=== PATIENT | female | born 1930 | race Two or more races ===

== ENCOUNTER 2020-03-09 13:52 | Inpatient (IN) | payer SELFPAY ==
[~2020-03-09] VITALS: Ht 165.1 cm; Wt 70.3 kg
--- NOTE | 2020-03-09 13:55 | NUR ---
ED Nurse Note: Pt was brought in by ambulance from home d/t near syncope. Per EMS report, "family provided chest compressions"; pt (-) loss of consciousness. Pt is AOx2, fluent in polish, calm and cooperative. Placed on bed and gown; hooked to case monitor. Initial BP's at 180/76. safety measures in placed. Will continue to monitor pt.
--- NOTE | 2020-03-09 14:16 | Emergency Room Report ---
History of Present Illness General Chief Complaint: Syncope Source: Patient Present Illness HPI Patient is an 89-year-old female brought in by EMS after witnessed syncopal episode. Patient had been noted to have loss of consciousness briefly. Patient had been given CPR by family member. Had subsequent return of normal mental status after CPR. Patient reportedly Maltese-speaking. Review of systems: Review systems is limited by patient's being a poor historian Allergies: Coded Allergies: No Known Allergies (Unverified , 03/09/20) COVID-19 Screening Contact w/high risk pt: No Recent Travel to affected area: No Experienced COVID-19 symptoms?: No COVID-19 Testing performed ADJUNCT PHILOSOPHY FACULTY: No Patient History Reviewed Nursing Documentation: PMH: Agreed; PSxH: Agreed Nursing Documentation-PMH Past Medical History: No History, Except For Hx Cardiac Problems: Yes Hx Hypertension: Yes Hx Diabetes: Yes Review of Systems All Other Systems: limited Physical Exam Vital Signs Date Time Temp Pulse Resp B/P (MAP) Pulse Ox O2 Delivery O2 Flow Rate FiO2 03/09/20 13:44 98.8 85 16 190/85 (120) 98 Room Air Sp02 EP Interpretation: reviewed, normal General Appearance: normal inspection, well appearing, no apparent distress, alert Head: atraumatic ENT: normal ENT inspection, hearing grossly normal, normal voice Neck: normal inspection, full range of motion, supple, no bony tend Respiratory: normal inspection, lungs clear, normal breath sounds, no respiratory distress, no retraction, no wheezing Cardiovascular #1: regular rate, rhythm, no edema Gastrointestinal: normal inspection, normal bowel sounds, non tender, soft, no guarding, no hernia Genitourinary: no CVA tenderness Musculoskeletal: normal inspection, back normal, normal range of motion Neurologic: alert, motor strength/tone normal, runway model III-XII nml as tested, responsive, speech normal, normal inspection Psychiatric: normal inspection, judgement/insight normal, mood/affect normal Medical Decision Making Diagnostic Impression: Primary Impression: Syncope ER Course Patient presented for syncope. Differential diagnosis include was not limited to subarachnoid hemorrhage, seizure, CVA, electrolyte abnormality, among others. Because of complexity of patient's case laboratory tests and imaging studies were ordered. Patient was noted to have decreased speech while in the emergency department initially. Appears to have strength in both upper extremities. CT imaging of the head as well as the chest were ordered chest CT was ordered due to patient's recent CPR and possible fractures.CT imaging read by radiology showed right renal mass CT of the head read by radiology showed atrophic changes without evidence CVA or intracranial hemorrhage. Patient was noted to have improvement in her mental status over time in emergency department. Laboratory testing was essentially unremarkable. Dr. Jose Roberto Ruby was contacted for inpatient management due to panel physician Labs Test 03/09/20 13:55 03/09/20 14:25 White Blood Count 7.0 K/UL (4.8-10.8) Red Blood Count 4.32 M/UL (4.20-5.40) Hemoglobin 11.7 G/DL (12.0-16.0) Hematocrit 34.7 % (37.0-47.0) Mean Corpuscular Volume 80 FL (80-99) Mean Corpuscular Hemoglobin 27.1 PG (27.0-31.0) Mean Corpuscular Hemoglobin Concent 33.7 G/DL (32.0-36.0) Red Cell Distribution Width 11.8 % (11.6-14.8) Platelet Count 198 K/UL (150-450) Mean Platelet Volume 5.9 FL (6.5-10.1) Neutrophils (%) (Auto) 61.0 % (45.0-75.0) Lymphocytes (%) (Auto) 26.6 % (20.0-45.0) Monocytes (%) (Auto) 8.8 % (1.0-10.0) Eosinophils (%) (Auto) 2.5 % (0.0-3.0) Basophils (%) (Auto) 1.2 % (0.0-2.0) Prothrombin Time 11.4 SEC (9.30-11.50) Prothromb Time International Ratio 1.0 (0.9-1.1) Activated Partial Thromboplast Time 28 SEC (23-33) Sodium Level 138 MMOL/L (136-145) Potassium Level 4.0 MMOL/L (3.5-5.1) Chloride Level 102 MMOL/L (98-107) Carbon Dioxide Level 27 MMOL/L (21-32) Anion Gap 9 mmol/L (5-15) Blood Urea Nitrogen 21 mg/dL (7-18) Creatinine 1.3 MG/DL (0.55-1.30) Estimat Glomerular Filtration Rate 38.6 mL/min (>60) Glucose Level 107 MG/DL (74-106) Lactic Acid Level 1.60 mmol/L (0.4-2.0) Calcium Level 9.6 MG/DL (8.5-10.1) Phosphorus Level 4.0 MG/DL (2.5-4.9) Magnesium Level 2.1 MG/DL (1.8-2.4) Total Bilirubin 0.4 MG/DL (0.2-1.0) Aspartate Amino Transf (AST/SGOT) 16 U/L (15-37) Alanine Aminotransferase (ALT/SGPT) 12 U/L (12-78) Alkaline Phosphatase 49 U/L (46-116) Total Creatine Kinase 50 U/L (26-308) Creatine Kinase MB 0.8 NG/ML (0.0-3.6) Creatine Kinase MB Relative Index 1.6 Troponin I 0.013 ng/mL (0.000-0.056) Total Protein 7.6 G/DL (6.4-8.2) Albumin 3.9 G/DL (3.4-5.0) Globulin 3.7 g/dL Albumin/Globulin Ratio 1.1 (1.0-2.7) Urine Color Pale yellow Urine Appearance Clear Urine pH 7 (4.5-8.0) Urine Specific [place] 1.005 (1.005-1.035) Urine Protein Negative (NEGATIVE) Urine Glucose (UA) Negative (NEGATIVE) Urine Ketones Negative (NEGATIVE) Urine Blood Negative (NEGATIVE) Urine Nitrite Negative (NEGATIVE) Urine Bilirubin Negative (NEGATIVE) Urine Urobilinogen Normal MG/DL (0.0-1.0) Urine Leukocyte Esterase 1+ (NEGATIVE) Urine RBC 0 /HPF (0 - 2) Urine WBC 0-2 /HPF (0 - 2) Urine Squamous Epithelial Cells Occasional /LPF Urine Bacteria Occasional /HPF (NONE) EKG Diagnostic Results Rate: normal - with a rate of [address] or T wave changes Rhythm: NSR ST Segments: no acute changes Last Vital Signs Date Time Temp Pulse Resp B/P (MAP) Pulse Ox O2 Delivery O2 Flow Rate FiO2 03/09/20 13:44 98.8 85 16 190/85 (120) 98 Room Air Status: unchanged Disposition: ADMITTED INPATIENT Condition: Stable Scripts Unable to Obtain Active Prescriptions or Reported Meds Referrals: NOT CHOSEN IPA/MD,REFERRING (PCP) Dontrell Hwang MD Mar 09, 2020 14:16
[2020-03-09 14:18] VITALS: BP 180/76
--- NOTE | 2020-03-09 14:19 | NUR ---
ED Nurse Note: x-ray tech at bedside.
[2020-03-09 14:26] LABS: ANION GAP 9 mmol/L (5-15); BLOOD UREA NITROGEN 21 mg/dL (7-18); CALCIUM 9.6 MG/DL (8.5-10.1); CARBON DIOXIDE 27 MMOL/L (21-32); CHLORIDE 102 MMOL/L (98-107); CREATININE 1.3 MG/DL (0.55-1.30); SODIUM 138 MMOL/L (136-145)
[2020-03-09 14:40] LABS: ALANINE AMINOTRANSFERASE 12 U/L (12-78); ALBUMIN 3.9 G/DL (3.4-5.0); ALBUMIN/GLOBULIN RATIO 1.1 (1.0-2.7); ALKALINE PHOSPHATASE 49 U/L (46-116); ASPARTATE AMINO TRANSFERASE 16 U/L (15-37); BILIRUBIN,TOTAL 0.4 MG/DL (0.2-1.0); CKMB 0.8 NG/ML (0.0-3.6); CREATINE KINASE 50 U/L (26-308)
[2020-03-09 14:42] LABS: BASOPHILS % (AUTO) 1.2 % (0.0-2.0); EOSINOPHILS % (AUTO) 2.5 % (0.0-3.0); HEMATOCRIT 34.7 % (37.0-47.0); HEMOGLOBIN 11.7 G/DL (12.0-16.0); LYMPHOCYTES % (AUTO) 26.6 % (20.0-45.0); MEAN CORPUSCULAR VOLUME 80 FL (80-99); MONOCYTES % (AUTO) 8.8 % (1.0-10.0); PLATELET COUNT 198 K/UL (150-450); RED BLOOD COUNT 4.32 M/UL (4.20-5.40); RED CELL DISTRIBUTION WIDTH 11.8 % (11.6-14.8)
--- NOTE | 2020-03-09 14:46 | NUR ---
ED Nurse Note: urine collected, sent to labs.
[2020-03-09 14:51] LABS: APPEARANCE,URINE CLEAR; BILIRUBIN, URINE NEGATIVE (NEGATIVE); COLOR,URINE PALE YELLOW; GLUCOSE, URINE (UA) NEGATIVE (NEGATIVE); KETONES,URINE NEGATIVE (NEGATIVE); LEUKOCYTE ESTERASE ,URINE 1+ (NEGATIVE); NITRITE,URINE NEGATIVE (NEGATIVE); PH,URINE 7 (4.5-8.0); PROTEIN,URINE NEGATIVE (NEGATIVE); UROBILINOGEN,URINE NORMAL MG/DL (0.0-1.0)
--- NOTE | 2020-03-09 14:56 | NUR ---
ED Nurse Note: daughter : emilia [phone]
--- NOTE | 2020-03-09 15:34 | Diagnostic Imaging Report ---
Indication: Shortness of breath Technique: One view of the chest Comparison: none Findings: Patient is slightly rotated to the right. There is mild prominence of the interstitial markings, suspect on the basis of senescent changes. No amita congestion, infiltrates, or effusions. The heart size is upper limits normal. Impression: Mildly prominent interstitial markings, suspect on the basis of senescent changes. No definite acute process
--- NOTE | 2020-03-09 15:48 | NUR ---
ED Nurse Note: pt taken to CT
--- NOTE | 2020-03-09 16:24 | Diagnostic Imaging Report ---
Indications: Syncopal episode, loss of consciousness Technique: Spiral acquisitions obtained through the brain. Angled axial and coronal 5 x 5 mm slices were reconstructed. Total dose length product 1040 mGycm. CTDI vol(s) 53 mGy. Dose reduction achieved using automated exposure control Comparison: None. Findings: There is age-related enlargement of the ventricles and extra axial CSF spaces. There is periventricular deep white matter low-attenuation, consistent with chronic microvascular ischemic change. Otherwise normal booth-white differentiation. No acute intracranial hemorrhage or edema. No mass effect nor midline shift. Intact calvarium. Visualized orbits are unremarkable. There is ethmoid and maxillary sinus disease noted. The mastoids are clear. Impression: Chronic and age-related changes Negative for acute intracranial bleed or mass effect Minimal sinus disease The CT scanner at [facility] is accredited by the [employer] and the scans are performed using protocols designed to limit radiation exposure to as low as reasonably achievable to attain images of sufficient resolution adequate for diagnostic evaluation.
--- NOTE | 2020-03-09 16:36 | Diagnostic Imaging Report ---
Clinical Indication: Chest pain, possible rib trauma Technique: Spiral acquisitions obtained through the chest. No IV contrast utilized, reason not stated. Multiplanar reconstructions generated. Total dose length product to 35 mGycm. CTDIvol(s) 5 mGy. Dose reduction achieved using automated exposure control Comparison: none Findings: No evidence of rib or other fracture demonstrated. No significant soft tissue contusion. There are mild degenerative changes of the thoracic spine. Chronic appearing tiny clustered nodular opacities are seen at the periphery of both lungs. These may be calcified. There are some dependent posterior atelectatic changes at both lung bases. No dense consolidation. No definite infiltrates, masses, or contusion demonstrated. The heart size is normal. The main pulmonary artery is somewhat ectatic, measuring up to 3.5 cm in diameter, in the right main pulmonary artery is frankly dilated, measuring 3 cm in diameter. The ascending thoracic aorta is mildly ectatic but not frankly aneurysmal. No mediastinal or hilar mass or adenopathy. No pericardial effusion. The esophagus is unremarkable. The included thyroid is unremarkable. No axillary or chest wall mass or adenopathy. Included upper abdominal anatomy demonstrates a soft tissue attenuation mass in the upper pole of the right kidney, incompletely visualized but measuring at least 4 cm in diameter, with some peripheral calcification. Multiple cysts are seen in both kidneys. Calcifications in both kidneys are probably mostly arterial. The liver demonstrates multiple cysts. Considerable stool is seen throughout the colon. Impression: No evidence of acute bony or significant soft tissue trauma Minimal chronic fibrotic changes of the lungs Ectatic main and dilated right pulmonary artery, suggestive of pulmonary arterial hypertension 4 cm solid appearing right renal mass, incompletely included. Neoplasm possible. Further evaluation with contrast CT recommended Evidence of constipation Incidental finding of hepatic and bilateral renal cysts. Findings discussed by phone with Dr. Hwang in the emergency room at the time of interpretation The CT scanner at [facility] is accredited by the [employer] and the scans are performed using protocols designed to limit radiation exposure to as low as reasonably achievable to attain images of sufficient resolution adequate for diagnostic evaluation.
--- NOTE | 2020-03-09 17:04 | NUR ---
ED Nurse Note: report given to KATHY Cruz for continuity of care.
--- NOTE | 2020-03-09 17:30 | NUR ---
TRANSFER TO SDU: Patient transferred to ROOM 235-1 as ordered, per Dr. Ruby. Report given too Nancy RN. Belongings sent with patient upstairs. Family and or S/O informed of transfer.
--- NOTE | 2020-03-09 17:50 | NUR ---
NURSE NOTES: Received report from KATHY Teran. Pt transferred from ED via gurney with 2 RNs. Pt awake and orientedx4 and australian speaking only. IV site in left hand 22G SL, Lefe forearm 20G SL patent and asymptomatic. Denied pain at this time. Pt able to walk with staff assist. Continent x2. groundwater monitoring technician applied. Will contact Tung Merlos for admission orders.
[2020-03-09] MEDS ORDERED: METFORMIN HCL850 M1 ORAL (18:13)
[2020-03-09] MEDS ORDERED: LOSARTAN POTASS50 MG ORAL (18:13)
[2020-03-09] MEDS ORDERED: PENTOXIFYLLINE400 MG ORAL (18:13)
[2020-03-09] MEDS ORDERED: NORVASC5 MG ORAL (18:13)
[2020-03-09] MEDS ORDERED: HYDROCHLOROTH12.5 MG ORAL (18:13)
--- NOTE | 2020-03-09 18:30 | NUR ---
NURSE NOTES: Med rec is done. Admission orders obtained.
--- NOTE | 2020-03-09 19:20 | NUR ---
HAND-OFF: Report given to KATHY Olmos. Pt remains stable.
--- NOTE | 2020-03-09 19:30 | NUR ---
NURSE NOTES: pt report received from MIN RN. pt remains stable. pt is alert and oriented times 4, able to follow commands. pt is on mechanic assistant showing NSR, no acute cardiac abnormalities noted. pt is sating at 97% O2. pt bed is low, locked, armed, call light within reach, bed rails up times 3. will follow plan of care.
[2020-03-09 20:00] VITALS: BP 132/79
[2020-03-09] MEDS: NovoLOG Insulin Flexpen SUBQ SCH (20:32)
[2020-03-09] MEDS: Losartan 50mg tab ORAL SCH (20:40)
[2020-03-10] VITALS: BP 124/82
--- NOTE | 2020-03-10 | History and Physical Report ---
DATE OF ADMISSION: 03/09/2020 SUBJECTIVE: This is an 89-year-old female who came with a syncopal episode at home. The patient also has loss of consciousness, CPR resuscitated. The patient was transferred to the medical floor. The patient had a CT scan showing a right renal mass. The patient was also altered, but now she feels much better. Her head CT is negative. PAST MEDICAL HISTORY: Significant for hypertension, degenerative arthritis, and generalized weakness. PHYSICAL EXAMINATION: GENERAL: The patient is now alert, oriented x2. VITAL SIGNS: Her blood pressure is 130/70, pulse 84, respirations 18, no fever. SKIN: Skin is good with skin turgor. HEENT: Eyes are open. NECK: Supple. CHEST: Bilateral decreased breath sounds. CARDIOVASCULAR: Regular rhythm. No gallop. No murmur. ABDOMEN: Soft. Positive bowel sounds. Nontender. EXTREMITIES: No edema. GENITOURINARY: Deferred. LABORATORY EXAMINATIONS: urine is negative. White counts are normal. ASSESSMENT: 1. Altered mental status. 2. Syncope. 3. Cardiopulmonary arrest. 4. Renal mass. PLAN: We will admit on telemetry bed. Consider neuro consult. Add IV fluids. Neuro check. PT and OT evaluation. Consider urology consult and nephro consult. Jose Roberto Ruby M.D. DR: ELENA JOB#: [id number] CC:
[2020-03-10 04:00] VITALS: BP 136/80
[2020-03-10] MEDS: NovoLOG Insulin Flexpen SUBQ SCH ×2 (05:57→11:30)
--- NOTE | 2020-03-10 07:20 | NUR ---
HAND-OFF: Report given to RAMIRO RN. Pt remains stable.
--- NOTE | 2020-03-10 07:21 | NUR ---
NURSE NOTES: Received patient in bed awake. No SOB or acute distress. IV lines intact. HOB elevated. Bed locked in lowest position. Call light within reach. Will continue plan of care.
[2020-03-10 08:00] VITALS: BP 123/70
[2020-03-10] MEDS: Losartan 50mg tab ORAL SCH (08:34)
[2020-03-10] MEDS ORDERED: hydroCHLOROthiazide 12.5mg TAB ORAL SCH (09:00)
--- NOTE | 2020-03-10 09:00 | NUR ---
NURSE NOTES: Complaining of right rib pain, Dr Ruby made aware, with orders for tylenol, noted and carried out. Carotid duplex scan ongoing at bedside.
[2020-03-10 12:00] VITALS: BP 125/67
--- NOTE | 2020-03-10 12:03 | NUR ---
CASE MANAGEMENT: REVIEW 89 YEAR OLD FEMALE BIBA FROM HOME CC: SYNCOPAL EPISODE . S/P CPR SI: SYNCOPE . T 98.8 HR 85 RR 16 BP 190/85 SAT 98% ROOM AIR H/H 11.7/34.7 BUN [address] HEAD -- NEGATIVE FOR ACUTE INTRACRANIAL BLEED OR MASS EFFECT IS: NS IVF BOLUS X1 PT EVAL NEURO CHECKS PATIENT ADMITTED TO STEP DOWN UNIT 03/07/2020 DCP: PATIENT IS FROM HOME
--- NOTE | 2020-03-10 12:13 | Diagnostic Imaging Report ---
Indication: Altered mental status, near syncope Technique: Grayscale and duplex images of the bilateral extracranial carotid and vertebral arteries Comparison: none Findings: Bilaterally, grayscale and duplex images demonstrate atherosclerotic plaquing resulting in less than 50% diameter narrowing. Normal Doppler flow velocities and waveforms. Patent bilateral vertebral arteries, antegrade flow. Impression: Less than 50% diameter stenosis bilaterally All stenosis was measured based on the NASCET criteria. Velocity criteria are extrapolated from diameter data as defined by the Society of radiologists in ultrasound consensus conference. Radiology 2003:229; 340-346
--- NOTE | 2020-03-10 12:45 | Cardiac Electrophysiology PN ---
Subjective Subjective [id number] Objective Last 24 Hour Vital Signs Date Time Temp Pulse Resp B/P (MAP) Pulse Ox O2 Delivery O2 Flow Rate FiO2 03/10/20 08:34 123/70 03/10/20 08:34 123/70 03/10/20 08:34 78 123/70 03/10/20 08:34 57 03/10/20 08:00 98.2 78 20 123/70 (87) 100 03/10/20 04:00 56 03/10/20 04:00 Room Air 03/10/20 04:00 98.8 58 20 136/80 (98) 98 03/10/20 00:00 Room Air 03/10/20 00:00 55 03/10/20 00:00 98.2 68 21 124/82 (96) 99 03/09/20 20:40 135/78 03/09/20 20:00 98.7 71 20 132/79 (96) 99 03/09/20 20:00 Room Air 03/09/20 20:00 73 03/09/20 18:13 Room Air 03/09/20 17:30 98.8 67 20 159/64 99 Room Air 03/09/20 14:18 98.8 16 180/76 98 Room Air 03/09/20 13:44 98.8 85 16 190/85 (120) 98 Room Air Intake and Output 03/09/20 03/10/20 19:00 07:00 Intake Total 1000 ml 750 ml Balance 1000 ml 750 ml Intake IV Total 1000 ml 750 ml Laboratory Tests Test 03/09/20 13:55 03/09/20 14:25 White Blood Count 7.0 K/UL (4.8-10.8) Red Blood Count 4.32 M/UL (4.20-5.40) Hemoglobin 11.7 G/DL (12.0-16.0) L Hematocrit 34.7 % (37.0-47.0) L Mean Corpuscular Volume 80 FL (80-99) Mean Corpuscular Hemoglobin 27.1 PG (27.0-31.0) Mean Corpuscular Hemoglobin Concent 33.7 G/DL (32.0-36.0) Red Cell Distribution Width 11.8 % (11.6-14.8) Platelet Count 198 K/UL (150-450) Mean Platelet Volume 5.9 FL (6.5-10.1) L Neutrophils (%) (Auto) 61.0 % (45.0-75.0) Lymphocytes (%) (Auto) 26.6 % (20.0-45.0) Monocytes (%) (Auto) 8.8 % (1.0-10.0) Eosinophils (%) (Auto) 2.5 % (0.0-3.0) Basophils (%) (Auto) 1.2 % (0.0-2.0) Prothrombin Time 11.4 SEC (9.30-11.50) Prothromb Time International Ratio 1.0 (0.9-1.1) Activated Partial Thromboplast Time 28 SEC (23-33) Sodium Level 138 MMOL/L (136-145) Potassium Level 4.0 MMOL/L (3.5-5.1) Chloride Level 102 MMOL/L (98-107) Carbon Dioxide Level 27 MMOL/L (21-32) Anion Gap 9 mmol/L (5-15) Blood Urea Nitrogen 21 mg/dL (7-18) H Creatinine 1.3 MG/DL (0.55-1.30) Estimat Glomerular Filtration Rate 38.6 mL/min (>60) Glucose Level 107 MG/DL (74-106) H Lactic Acid Level 1.60 mmol/L (0.4-2.0) Calcium Level 9.6 MG/DL (8.5-10.1) Phosphorus Level 4.0 MG/DL (2.5-4.9) Magnesium Level 2.1 MG/DL (1.8-2.4) Total Bilirubin 0.4 MG/DL (0.2-1.0) Aspartate Amino Transf (AST/SGOT) 16 U/L (15-37) Alanine Aminotransferase (ALT/SGPT) 12 U/L (12-78) Alkaline Phosphatase 49 U/L (46-116) Total Creatine Kinase 50 U/L (26-308) Creatine Kinase MB 0.8 NG/ML (0.0-3.6) Creatine Kinase MB Relative Index 1.6 Troponin I 0.013 ng/mL (0.000-0.056) Total Protein 7.6 G/DL (6.4-8.2) Albumin 3.9 G/DL (3.4-5.0) Globulin 3.7 g/dL Albumin/Globulin Ratio 1.1 (1.0-2.7) Urine Color Pale yellow Urine Appearance Clear Urine pH 7 (4.5-8.0) Urine Specific [place] 1.005 (1.005-1.035) Urine Protein Negative (NEGATIVE) Urine Glucose (UA) Negative (NEGATIVE) Urine Ketones Negative (NEGATIVE) Urine Blood Negative (NEGATIVE) Urine Nitrite Negative (NEGATIVE) Urine Bilirubin Negative (NEGATIVE) Urine Urobilinogen Normal MG/DL (0.0-1.0) Urine Leukocyte Esterase 1+ (NEGATIVE) H Urine RBC 0 /HPF (0 - 2) Urine WBC 0-2 /HPF (0 - 2) Urine Squamous Epithelial Cells Occasional /LPF Urine Bacteria Occasional /HPF (NONE) Gordy Chance MD Mar 10, 2020 12:45
--- NOTE | 2020-03-10 13:30 | NUR ---
P.T Note: P.T evaluation completed and tx initiated. Please refer to P.T evaluation for current functional status. Pt is alert, O x 4 , pleasant and cooperative. Pt reports c/o generalized weakness and pain on the R rib cage affecting her mobility performance and independence. Pt however is pleasant and cooperative. Pt currently requires MIN A X 1 for bed mobility and Transfer activities. Pt was able to ambulate distance of 50 ft using the FWW and MIN A X 1. Pt appeared exhausted and fatigued post P.T eval/tx. Pt will benefit from P.T services to improve her strength and endurance to increase mobility independence and safety in mobility to be able to return to PLOF. Recommend FWW and home P.T at [place].
--- NOTE | 2020-03-10 16:00 | NUR ---
NURSE NOTES: Patient discharged to homein stable condition. Front wheel walker ordered and given to patient for home use. ID band removed. IV line removed. Belongings accounted for. No new skin issues noted. Wheeled down to lobby. Discharge instructions given to daughter Shen, verbalized understanding. Transported via private vehicle.
--- NOTE | 2020-03-10 20:00 | History and Physical Report ---
DATE OF ADMISSION: 03/09/2020 HISTORY OF PRESENT ILLNESS: This is an 89-year-old female who came with syncopal episode. The patient is in the bed comfortable. PAST MEDICAL HISTORY: Significant for hypertension and diabetes. MEDICATIONS: She is taking Norvasc, hydrochlorothiazide, insulin, losartan, and . PHYSICAL EXAMINATION: GENERAL: This is an elderly female, currently awake, alert, and comfortable. VITAL SIGNS: Blood pressure is 123/70, pulse is 78, and her temperature is 98.2. HEENT: NAD. CHEST: Bilaterally clear. CARDIOVASCULAR: Regular rhythm. ABDOMEN: Soft. EXTREMITIES: CCE. NEUROLOGICAL: No focal deficit. LABORATORY DATA: White counts are 7, hemoglobin 12, hematocrit 35, platelets are 198. Chemistry panel, BUN 21, creatinine 1.3, glucose 107, troponin 0.13. Urine is 1+ leukocyte esterase. The patient's chest x-ray is showing mildly prominent interstitial markings persistent change. No definite acute process. CT head is negative. Chronic age-related changes. Her CT of abdomen shows no evidence of acute bony significant soft tissue trauma. ASSESSMENT: 1. Syncope. 2. Hypertension. 3. Diabetes. PLAN: The patient is taking diuretics. Recommended to quit, increase p.o. fluids. Continue sliding scale, Accu-Chek, PT and OT. Cardiology on case. Jose Roberto Ruby M.D. DR: Farhan JOB#: [id number] CC:
--- NOTE | 2020-03-10 22:15 | Consultation ---
DATE OF CONSULTATION: 03/10/2020 CARDIOLOGY CONSULTATION CONSULTING PHYSICIAN: Gordy Chance MD. REFERRING PHYSICIAN: Carlos Ruby MD. REASON FOR CONSULTATION: Status post CPR at home with syncope. HISTORY OF PRESENT ILLNESS: Patient is an 89-year-old lady who was brought in by paramedics after she had a witnessed syncopal episode. Patient apparently had a transient loss of consciousness and apparently was given CPR by family member. Patient had subsequent return of normal mental status after the CPR. Patient is Albanian speaking only and currently denies any chest pain or shortness of breath. REVIEW OF SYSTEMS: Negative other than what was mentioned in history of present illness. PAST MEDICAL HISTORY: As mentioned above. Includes hypertension, diabetes. FAMILY HISTORY: Noncontributory. SOCIAL HISTORY: She lives at home. PHYSICAL EXAMINATION: VITAL SIGNS: Her blood pressure in the ER was 190/85 with a pulse of 85 and currently is 123/70 with a pulse of 57, respirations 18, and she is afebrile. HEAD AND NECK: Showed no JVD. LUNGS: Clear. CARDIOVASCULAR: Shows regular S1 and S2 with no gallop or murmur. ABDOMEN: Soft. EXTREMITIES: No pitting edema. LABORATORY AND DIAGNOSTIC DATA: Her EKG showed normal sinus rhythm, normal electrocardiogram. Her labs show white count 7, hemoglobin 11.7, hematocrit 35, and platelet count 198. Sodium 138, potassium 4.0, BUN of 21, creatinine 1.3, and glucose of 107. First troponin is negative. UA is negative. ASSESSMENT AND PLAN: 1. Status post syncopal episode requiring CPR. The nature of which is not clear at this time as patient was not monitored at that time. Currently, patient's EKG is completely normal. First troponin is negative. We will completely rule out SC protocol. Get a carotid duplex as well as watch the patient on telemetry. Get an echocardiogram for further evaluation. 2. History of hypertension, on Norvasc 5 mg daily, hydrochlorothiazide 12.5 mg daily, and Cozaar 50 mg b.i.d. 3. Diabetes, on metformin. Thank you very much for allowing me to participate in the care of this patient. Please do not hesitate to contact me for any questions regarding my evaluation. Gordy Chance M.D. DR: SELVIN JOB#: [id number] CC:
--- NOTE | 2020-03-12 10:22 | Discharge Summary ---
Discharge Summary Discharge Summary _ DATE OF ADMISSION: 03/09/2020 DATE OF DISCHARGE: 03/10/2020 DISCHARGED BY: Dr. Ruby REASON FOR ADMISSION: 89 years old female with past medical history of hypertension, diabetes mellitus , was brought by paramedics after witnessed syncopal episode. Patient reported brief loss of consciousness. Patient received CPR by a family member. Patient subsequently returned to normal mental status after CPR. Upon evaluation blood pressure was elevated 190/85 , otherwise patient was afebrile and pulse oximetry was stable on room air. Laboratory work-up revealed no leukocytosis, hemoglobin 11.7 ,hematocrit 34.7, platelet count 198. Stable electrolytes. BUN 21, creatinine 1.3. Glucose 107. Lactic acid 1.6. Stable LFT. Urinalysis revealed no evidence of urinary tract infection. EKG revealed sinus rhythm, no acute ischemic changes . CT of the chest revealed no evidence of acute bony or significant soft tissue trauma. Minimal chronic fibrotic changes of the lungs. Ectatic main and dilated right pulmonary artery suggestive of pulmonary arterial hypertension. 4 cm solid appearing right renal mass. Neoplasm possible. Constipation. Hepatic and bilateral renal cysts. CT scan of the head revealed no evidence of acute intracranial bleeding or mass- effect. Chronic and age-related changes noted. Chest x-ray documented mildly prominent interstitial markings , suspecting on the basis of senescent changes. No definite acute process. Patient subsequently admitted to [facility] for further management CONSULTANTS: senior industrial engineer Dr. Evans HOSPITAL COURSE: Patient admitted and started on the IV fluids . Blood pressure was managed with angiotensin receptor liss , hydrochlorothiazide and calcium channel liss to bring blood pressure under control. Prior to discharge blood pressure 125/67. Supplemental oxygen was on board as needed to keep pulse oximetry above 92%. Pulmonary toilet provided as needed. Pulse oximetry remained stable on room air. Troponin was negative. Echocardiogram demonstrated mild global LV hypokinesis with left ventricular ejection fraction estimated to be 45%. Mild left ventricular hypertrophy. No evidence of pericardial effusion. Right ventricular systolic pressure of 33. Troponin was negative. ECG revealed no acute ischemic changes. No arrhythmia or acute changes on telemetry strip. Carotid Duplex to be done as outpatient. Blood sugar was managed with metformin. Neuro-checks were checked frequently and remained stable. Fall precaution maintained. Patient was working with physical therapist. Front wheel walker provided to patient after physical therapy evaluation and recommendation. Patient clinically stabilized and was ready for discharge home. Due to rapid and unexpected improvement in patient condition, patient was discharged in 1 day. FINAL DIAGNOSES: Status post syncopal episode requiring CPR Hypertension with initial hypertensive urgency Diabetes mellitus Altered mental status - resolved Renal mass DISCHARGE MEDICATIONS: See Medication Reconciliation list. DISCHARGE INSTRUCTIONS: Patient was discharged home. Follow-up with a primary care provider in 1 week. Patient was advised to follow-up regarding renal mass for further outpatient work-up. I have been assigned to dictate discharge summary for this account. I was not involved in the patient's management. Joanna Lizarraga NP Mar 12, 2020 10:22
== END 2020-03-10 16:26 | disposition home or self-care (01) | DRG 305 ==
LOC: EDBD 13:52 → EMR 14:06 → 2W 15:06 → EDBEDREQ 16:48 → 2W 18:00
DX: I16.0 Hypertensive urgency (principal); R55 Syncope and collapse; E11.9 Type 2 diabetes mellitus without complications; Z79.4 Long term (current) use of insulin; N28.89 Other specified disorders of kidney and ureter
CPT/HCPCS: 36415; 70450; 71045; 71250; 80053; 81003; 82550; 82553; 82962; 83605; 83735; 84100; 84484; 85025; 85610; 85730; 86850; 86900; 86901; 87040; 93005; 93306; 93880; 96360; 99285; J1815; J7030